=== PATIENT | male | born 1950 | race Caucasian/White ===

== ENCOUNTER 2018-06-16 13:39 | Emergency (ER) | payer MEDICARE, OTHER ==
[~2018-06-16] VITALS: Ht 157.5 cm; Wt 72.0 kg
[~2018-06-16 13:39] MED LIST: AMLO5TAB4 PO; ASPI-1159 PO; CARV25TA47 PO; FERR-43 PO; LOSA25TA12 PO; SEVE800T8 PO
[2018-06-16 14:56] LABS: BG BASE EXCESS 1.2 mmol/L (-2.0-2.0); BG CARBOXYHEMOGLOBIN 1.3 % (0.5-1.5); BG DEOXYHEMOGLOBIN 3.5 % (0.0-5.0); BG FRACTION INSPIRED OXYGEN 28; BG HCO3 ACT 26.2 mmol/L (22.0-26.0); BG METHEMOGLOBIN 0.3 % (0.0-1.5); BG OXYGEN SATURATION 96.4 % (92.0-98.5); BG OXYHEMOGLOBIN 94.9 % (94.0-97.0); BG PCO2 42.7 mmHg (35.0-45.0); BG PH 7.405 (7.350-7.450); BG PO2 93.7 mmHg (75.0-100.0); BG SAMPLE SITE RIGHT BRACHIAL; BG TOTAL HEMOGLOBIN 11.6 g/dL (12.0-18.0); BG VENT MODE NASAL CANNULA
[2018-06-16 15:11] LABS: CHLORIDE 90 mEq/L (98-107)
[2018-06-16 15:13] LABS: BASOPHILS % 0.4 % (0.0-2.0); EOSINOPHILS % 0.3 % (0.0-5.0); HEMATOCRIT. 34.3 % (42.0-52.0); HEMOGLOBIN. 11.6 g/dL (14.0-18.0); LYMPHOCYTES % 7.7 % (20.0-50.0); MEAN CORPUSCULAR HEMOGLOBIN 31.8 pg (28.0-32.0); MEAN CORPUSCULAR VOLUME 94.3 fL (80.0-94.0); MEAN PLATELET VOLUME 10.1 fl (7.4-10.4); MONOCYTES % 10.7 % (2.0-8.0); NEUTROPHILS % 80.9 % (40.0-76.0); PLATELET 138 x1000/uL (130-400); RED BLOOD CELL COUNT 3.64 mill/uL (4.7-6.1); RED CELL DISTRIBUTION WIDTH 15.6 % (11.6-14.6)
[2018-06-16 15:14] LABS: INR 1.1; PARTIAL THROMBOPLASTIN TIME 28.6 sec (23.4-31.0); PROTHROMBIN TIME 11.4 sec (9.1-11.1)
[2018-06-16 15:17] LABS: PHOSPHORUS 5.5 mg/dL (2.5-4.9)
[2018-06-16] MEDS ORDERED: INSULIN REGULAR (HUMULIN R) 300UNITS/3ML SUBCUT ONE (16:45)
[2018-06-16] MEDS ORDERED: DOCUSATE SODIUM 100MG CAPSULE PO PRN (18:45)
[2018-06-16] MEDS ORDERED: DIPHENHYDRAMINE 50MG/ML VIAL IV PRN (18:45)
[2018-06-16] MEDS ORDERED: ENOXAPARIN 40MG/0.4ML SYR SUBCUT SCH (18:45)
[2018-06-16] MEDS ORDERED: LORAZEPAM 0.5MG TABLET PO PRN (18:45)
[2018-06-16] MEDS ORDERED: ONDANSETRON HCL 4MG/2ML INJ IV PRN (18:45)
[2018-06-16] MEDS ORDERED: ACETAMINOPHEN 325MG TABLET PO PRN (18:45)
[2018-06-16] MEDS ORDERED: GUAIFENESIN 200MG/10ML SUGAR FREE UDC PO PRN (18:45)
[2018-06-16] MEDS ORDERED: CLONIDINE 0.1MG TABLET PO PRN (18:45)
[2018-06-16] MEDS ORDERED: SODIUM CHLORIDE 0.9% INJ 3ML FLUSH IVF SCH (22:00)
[2018-06-17 05:23] LABS: HEMATOCRIT. 34.2 % (42.0-52.0); HEMOGLOBIN. 11.6 g/dL (14.0-18.0); MEAN CORPUSCULAR VOLUME 94.1 fL (80.0-94.0); MEAN PLATELET VOLUME 9.5 fl (7.4-10.4); PLATELET 144 x1000/uL (130-400); RED BLOOD CELL COUNT 3.64 mill/uL (4.7-6.1); RED CELL DISTRIBUTION WIDTH 15.3 % (11.6-14.6)
[2018-06-17 05:38] LABS: PHOSPHORUS 5.6 mg/dL (2.5-4.9)
[2018-06-17 08:28] LABS: PLATELET ESTIMATE NORMAL
[2018-06-17 14:16] VITALS: BP 161/75
[2018-06-17] MEDS ORDERED: LOSARTAN POTASSIUM 25 MG TABLET PO SCH (14:30)
[2018-06-17] MEDS ORDERED: CARVEDILOL 25MG TABLET PO ONE (14:30)
[2018-06-17] MEDS ORDERED: AMLODIPINE 5MG TABLET PO SCH (21:00)
[2018-06-17] MEDS ORDERED: ATORVASTATIN CALCIUM 40MG TABLET PO SCH (21:00)
[2018-06-18] MEDS ORDERED: ASPIRIN 81MG EC TABLET PO SCH (09:00)
== END 2018-06-17 14:21 | disposition left against medical advice (07) ==
LOC: ER 13:39 → EDBEDREQ 14:38 → ER 06-17 14:21 → CANBEDREQ 06-17 17:15
DX: N17.9 Acute kidney failure, unspecified (principal); R53.1 Weakness; E11.22 Type 2 diabetes mellitus with diabetic chronic kidney disease; E87.8 Other disorders of electrolyte and fluid balance, not elsewhere classified; E11.65 Type 2 diabetes mellitus with hyperglycemia; I12.0 Hypertensive chronic kidney disease with stage 5 chronic kidney disease or end stage renal disease; N18.6 End stage renal disease; D63.1 Anemia in chronic kidney disease; M25.512 Pain in left shoulder; I25.10 Atherosclerotic heart disease of native coronary artery without angina pectoris; Z88.0 Allergy status to penicillin; Z88.8 Allergy status to other drugs, medicaments and biological substances; Z99.2 Dependence on renal dialysis; Z98.890 Other specified postprocedural states; Z79.82 Long term (current) use of aspirin
CPT/HCPCS: 36415; 36600; 71045; 73030; 80048; 80053; 82375; 82805; 82962; 83735; 84100; 84484; 85025; 85610; 85730; 93005; 96372; 99284; J1815

== ENCOUNTER 2018-12-17 05:29 | Inpatient (IN) | payer OTHER, MEDICAID ==
[~2018-12-17] VITALS: Ht 160 cm; Wt 66.2 kg
[2018-12-17] VITALS (15 sets, daily range): BP systolic 103–139; BP diastolic 24–84
[2018-12-17] MEDS ORDERED: SODIUM CHLORIDE 0.9% 1000ML BAG (SEPSIS BOLUS) IV ONE (06:15)
[2018-12-17 06:35] LABS: MEAN CORPUSCULAR VOLUME 96.9 fL (80.0-94.0); MEAN PLATELET VOLUME 9.5 fl (7.4-10.4); PLATELET 152 x1000/uL (130-400); RED BLOOD CELL COUNT 1.28 mill/uL (4.7-6.1); RED CELL DISTRIBUTION WIDTH 17.4 % (11.6-14.6)
[2018-12-17 06:42] LABS: CHLORIDE 100 mEq/L (98-107)
[2018-12-17 06:43] LABS: INR 1.3; PROTHROMBIN TIME 13.4 sec (9.6-11.0)
[2018-12-17 06:44] LABS: HEMATOCRIT. 12.4 % (42.0-52.0); HEMOGLOBIN. 4.1 g/dL (14.0-18.0)
[2018-12-17 07:15] LABS: PLATELET ESTIMATE NORMAL
[2018-12-17] MEDS ORDERED: MEROPENEM 1,000 MG in SODIUM CHLORIDE 0.9% 100 ML IV ONE (07:15)
[2018-12-17] MEDS ORDERED: VANCOMYCIN 1 G PREMIX 200 ML IV ONE (07:15)
[2018-12-17] MEDS ORDERED: MORPHINE SULFATE 4 MG/ML CPJ (NOT FOR IM USE) IV ONE (09:45)
[2018-12-17] MEDS ORDERED: ONDANSETRON HCL 4MG/2ML INJ IV PRN (13:15)
[2018-12-17] MEDS ORDERED: HYDROCODONE/ACETAMINOPHEN 5/325MG TABLET PO PRN (13:15)
[2018-12-17] MEDS ORDERED: MAGNESIUM/ALUMINUM HYDROXIDE/SIMETHICONE 30ML UDC PO PRN (13:15)
[2018-12-17] MEDS ORDERED: MORPHINE SULFATE 2 MG/ML CPJ (NOT FOR IM USE) IV PRN (13:15)
[2018-12-17] MEDS ORDERED: CLONIDINE 0.1MG TABLET PO PRN (13:15)
[2018-12-17] MEDS ORDERED: DEXTROSE 50% WATER 50ML SYRINGE IV PRN ×3 (13:15→17:45)
[2018-12-17] MEDS ORDERED: ACETAMINOPHEN 325MG TABLET PO PRN (13:15)
[2018-12-17] MEDS ORDERED: VANCOMYCIN 500 MG PREMIX 100 ML IV NR (15:00)
[2018-12-17 16:26] LABS: TOTAL IRON BINDING CAPACITY 195 ug/dL (250-450)
[2018-12-17] MEDS ORDERED: BLOOD SUGAR DIAGNOSTIC STRIP TEST SCH (17:30)
[2018-12-17] MEDS ORDERED: INSULIN LISPRO 100 UNITS/ML SUBCUT SCH ×2 (18:00)
[2018-12-17] MEDS: BLOOD SUGAR DIAGNOSTIC STRIP TEST SCH (18:58)
[2018-12-17] MEDS: FAMOTIDINE 20MG/2ML VIAL IV SCH (21:23)
[2018-12-18] VITALS (13 sets, daily range): BP systolic 118–165; BP diastolic 27–96
[2018-12-18] MEDS: BLOOD SUGAR DIAGNOSTIC STRIP TEST SCH ×5 (05:46→21:25)
[2018-12-18 06:37] LABS: HEMATOCRIT. 24.6 % (42.0-52.0); HEMOGLOBIN. 8.3 g/dL (14.0-18.0); MEAN CORPUSCULAR HEMOGLOBIN 30.8 pg (28.0-32.0); MEAN CORPUSCULAR VOLUME 90.8 fL (80.0-94.0); MEAN PLATELET VOLUME 9.8 fl (7.4-10.4); PLATELET 142 x1000/uL (130-400); RED BLOOD CELL COUNT 2.71 mill/uL (4.7-6.1); RED CELL DISTRIBUTION WIDTH 17.9 % (11.6-14.6)
[2018-12-18 06:41] LABS: INR 1.4
[2018-12-18] MEDS: INSULIN LISPRO 100 UNITS/ML SUBCUT SCH ×4 (06:42→21:33)
[2018-12-18 07:01] LABS: PHOSPHORUS 6.9 mg/dL (2.5-4.9)
[2018-12-18] MEDS ORDERED: BACTERIOSTATIC SODIUM CHLORIDE 0.9% 30ML VIAL IJ ONE ×2 (12:22→12:28)
[2018-12-18 14:15] LABS: NUCLEATED RED BLOOD CELLS 2 /100 WBC
[2018-12-18 14:16] LABS: PLATELET ESTIMATE NORMAL
[2018-12-18 16:53] LABS: HEMATOCRIT 24.6 % (42.0-52.0); HEMOGLOBIN 8.5 g/dL (14.0-18.0); MEAN CORPUSCULAR HEMOGLOBIN 30.8 pg (28.0-32.0); MEAN CORPUSCULAR VOLUME 89.3 fL (80.0-94.0); PLATELET 145 x1000/uL (130-400); RED BLOOD CELL COUNT 2.76 mill/uL (4.7-6.1); RED CELL DISTRIBUTION WIDTH 17.8 % (11.6-14.6)
[2018-12-18] MEDS: SUCRALFATE 1 G/10 ML UDC PO SCH ×2 (17:30→21:08)
[2018-12-18] MEDS ORDERED: MIDAZOLAM HCL 5 MG/5 ML VIAL ONE (18:19)
[2018-12-18] MEDS ORDERED: FENTANYL CITRATE/PF 50MCG/ML 2ML VIAL ONE (18:20)
[2018-12-18] MEDS ORDERED: MIDAZOLAM HCL 5 MG/5 ML VIAL IV PRN (18:20)
[2018-12-18] MEDS ORDERED: FENTANYL CITRATE/PF 50MCG/ML 2ML VIAL IV PRN (18:22)
[2018-12-18] MEDS: FAMOTIDINE 20MG/2ML VIAL IV SCH (21:08)
[2018-12-18] MEDS: ATORVASTATIN CALCIUM 20MG TABLET PO SCH (21:08)
[2018-12-18] MEDS: CARVEDILOL 25MG TABLET PO SCH (21:09)
[2018-12-18] MEDS ORDERED: SORBITOL 70% SOLN 30ML PO NR (23:00)
[2018-12-19] VITALS (12 sets, daily range): BP systolic 100–192; BP diastolic 3–109
[2018-12-19] MEDS ORDERED: SORBITOL 70% SOLN 30ML PO SCH ×2 (06:00→14:00)
[2018-12-19 06:57] LABS: BASOPHILS % 0.3 % (0.0-2.0); EOSINOPHILS % 0.2 % (0.0-5.0); HEMOGLOBIN. 8.3 g/dL (14.0-18.0); LYMPHOCYTES % 8.5 % (20.0-50.0); MEAN CORPUSCULAR HEMOGLOBIN 31.4 pg (28.0-32.0); MEAN CORPUSCULAR VOLUME 91.2 fL (80.0-94.0); MEAN PLATELET VOLUME 9.6 fl (7.4-10.4); MONOCYTES % 10.3 % (2.0-8.0); NEUTROPHILS % 80.7 % (40.0-76.0); PLATELET 140 x1000/uL (130-400); RED BLOOD CELL COUNT 2.63 mill/uL (4.7-6.1); RED CELL DISTRIBUTION WIDTH 18.1 % (11.6-14.6)
[2018-12-19] MEDS: BLOOD SUGAR DIAGNOSTIC STRIP TEST SCH ×3 (07:30→21:00)
[2018-12-19] MEDS: INSULIN LISPRO 100 UNITS/ML SUBCUT SCH ×4 (07:30→22:07)
[2018-12-19] MEDS: CARVEDILOL 25MG TABLET PO SCH ×2 (09:26→21:00)
[2018-12-19] MEDS: SUCRALFATE 1 G/10 ML UDC PO SCH ×3 (09:26→21:42)
[2018-12-19] MEDS ORDERED: NA PHOS,M-B/NA PHOS,DI-BA ENEMA 118ML PR SCH ×3 (11:00→15:00)
[2018-12-19] MEDS ORDERED: METOCLOPRAMIDE HCL 10MG/2ML VIAL IV SCH (14:00)
[2018-12-19] MEDS ORDERED: MIDAZOLAM HCL 5 MG/5 ML VIAL ONE (16:16)
[2018-12-19] MEDS ORDERED: FENTANYL CITRATE/PF 50MCG/ML 2ML VIAL ONE (16:16)
[2018-12-19] MEDS ORDERED: SIMETHICONE 40 MG/0.6 ML 30ML ONE (16:26)
[2018-12-19] MEDS ORDERED: MIDAZOLAM HCL 5 MG/5 ML VIAL IV PRN (16:30)
[2018-12-19] MEDS ORDERED: FENTANYL CITRATE/PF 50MCG/ML 2ML VIAL IV PRN (16:31)
[2018-12-19] MEDS ORDERED: EPOETIN ALFA 4000UNITS/ML VIAL SUBCUT SCH (21:00)
[2018-12-19] MEDS: FAMOTIDINE 20MG/2ML VIAL IV SCH (21:42)
[2018-12-19] MEDS: ATORVASTATIN CALCIUM 20MG TABLET PO SCH (21:43)
[2018-12-20] VITALS (11 sets, daily range): BP systolic 89–128; BP diastolic 23–110
[2018-12-20 07:19] LABS: BASOPHILS % 0.7 % (0.0-2.0); EOSINOPHILS % 2.8 % (0.0-5.0); HEMOGLOBIN. 8.2 g/dL (14.0-18.0); LYMPHOCYTES % 12.7 % (20.0-50.0); MEAN CORPUSCULAR HEMOGLOBIN 31.4 pg (28.0-32.0); MEAN CORPUSCULAR VOLUME 92.2 fL (80.0-94.0); MEAN PLATELET VOLUME 9.4 fl (7.4-10.4); MONOCYTES % 10.9 % (2.0-8.0); NEUTROPHILS % 72.9 % (40.0-76.0); PLATELET 134 x1000/uL (130-400); RED BLOOD CELL COUNT 2.61 mill/uL (4.7-6.1); RED CELL DISTRIBUTION WIDTH 18.3 % (11.6-14.6)
[2018-12-20] MEDS: BLOOD SUGAR DIAGNOSTIC STRIP TEST SCH ×3 (07:30→17:30)
[2018-12-20] MEDS ORDERED: FOLIC ACID/VITAMIN B COMP W-C TABLET PO SCH (09:00)
[2018-12-20] MEDS: SUCRALFATE 1 G/10 ML UDC PO SCH ×3 (09:04→18:03)
[2018-12-20] MEDS: CARVEDILOL 25MG TABLET PO SCH (09:05)
[2018-12-20] MEDS: INSULIN LISPRO 100 UNITS/ML SUBCUT SCH ×3 (09:06→17:30)
[2018-12-20] MEDS ORDERED: LOSARTAN POTASSIUM 25 MG TABLET PO SCH (10:45)
[2018-12-20 11:11] LABS: BG BASE EXCESS -2.7 mmol/L (-2.0-2.0); BG CARBOXYHEMOGLOBIN 1.8 % (0.5-1.5); BG DEOXYHEMOGLOBIN 5.5 % (0.0-5.0); BG FRACTION INSPIRED OXYGEN 21; BG HCO3 ACT 21.7 mmol/L (22.0-26.0); BG METHEMOGLOBIN 0.1 % (0.0-1.5); BG OXYGEN SATURATION 94.4 % (92.0-98.5); BG OXYHEMOGLOBIN 92.6 % (94.0-97.0); BG PCO2 35.9 mmHg (35.0-45.0); BG PO2 75.6 mmHg (75.0-100.0); BG SAMPLE SITE RIGHT BRACHIAL; BG VENT MODE ROOM AIR
[2018-12-20 14:30] LABS: ETHANOL BLOOD < 10 mg/dL
[2018-12-20 14:45] LABS: FOLIC ACID (FOLATE) SERUM 16.7 ng/mL (>5.38)
== END 2018-12-20 18:50 | disposition home health service (06) | DRG 871 ==
LOC: ER 05:46 → 5EST 08:26 → EDBEDREQTM 08:28 → EDBEDREQ 08:28 → ENRESERV 08:59
PROVIDERS: ADMIT Family Medicine Adult Medicine; ATTEND Family Medicine Adult Medicine
PROC: 5A1D70Z Performance of Urinary Filtration, Intermittent, Less than 6 Hours Per Day (ICD-10-PCS; 2018-12-17)
PROC: 30233N1 Transfusion of Nonautologous Red Blood Cells into Peripheral Vein, Percutaneous Approach (ICD-10-PCS; 2018-12-17)
PROC: 0DB68ZX Excision of Stomach, Via Natural or Artificial Opening Endoscopic, Diagnostic (ICD-10-PCS; principal; 2018-12-18)
PROC: 0DBP8ZZ Excision of Rectum, Via Natural or Artificial Opening Endoscopic (ICD-10-PCS; 2018-12-19)
PROC: 0DBN8ZZ Excision of Sigmoid Colon, Via Natural or Artificial Opening Endoscopic (ICD-10-PCS; 2018-12-19)
PROC: 5A1D70Z Performance of Urinary Filtration, Intermittent, Less than 6 Hours Per Day (ICD-10-PCS; 2018-12-19)
DX: A41.9 Sepsis, unspecified organism (principal); K29.71 Gastritis, unspecified, with bleeding; N18.6 End stage renal disease; G92 Toxic encephalopathy; I21.4 Non-ST elevation (NSTEMI) myocardial infarction; E44.1 Mild protein-calorie malnutrition; D62 Acute posthemorrhagic anemia; I13.2 Hypertensive heart and chronic kidney disease with heart failure and with stage 5 chronic kidney disease, or end stage renal disease; I31.3 Pericardial effusion (noninflammatory); I42.9 Cardiomyopathy, unspecified; I50.22 Chronic systolic (congestive) heart failure; N39.0 Urinary tract infection, site not specified; I24.8 Other forms of acute ischemic heart disease; D63.1 Anemia in chronic kidney disease; D69.6 Thrombocytopenia, unspecified; E11.22 Type 2 diabetes mellitus with diabetic chronic kidney disease; E86.1 Hypovolemia; E78.5 Hyperlipidemia, unspecified; I77.0 Arteriovenous fistula, acquired; E87.6 Hypokalemia; I25.10 Atherosclerotic heart disease of native coronary artery without angina pectoris; K63.5 Polyp of colon; K64.8 Other hemorrhoids; Z79.82 Long term (current) use of aspirin; I25.2 Old myocardial infarction; Z88.8 Allergy status to other drugs, medicaments and biological substances; Z82.49 Family history of ischemic heart disease and other diseases of the circulatory system; Z95.5 Presence of coronary angioplasty implant and graft
CPT/HCPCS: 36415; 36600; 70551; 71045; 80048; 80061; 80202; 80307; 80320; 82140; 82375; 82607; 82668; 82746; 82805; 82962; 83036; 83540; 83550; 83605; 83735; 84100; 84145; 84439; 84443; 84481; 84484; 85027; 85384; 86850; 86900; 86920; 88305; 88312; 88313; 93005; 93306; 93970; 96365; 96366; 97162; 97166; 99291; J0885; J1815; J2185; J2250; J2270; J2765; J3010; J3370; J3490; J7030; J7050; P9016; G0480